=== PATIENT | female | born 1975 | race Caucasian/White ===

== ENCOUNTER 2016-06-05 08:20 | Emergency (ER) | payer OTHER ==
[2016-06-05 08:25] VITALS: BP 125/90; PULSE 84; TEMP 98; BMI 20.5
[2016-06-05] MEDS ORDERED: CYCLOBENZAPRINE HCL 10 MG TABLET (FP) PO ONE (08:51)
[2016-06-05] MEDS ORDERED: CYCLOBENZAPRINE HCL 10 MG TABLET (FP) ONE (08:56)
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
== END 2016-06-05 09:01 | disposition home or self-care (01) ==
LOC: JERFT 08:20
DX: S13.4XXA Sprain of ligaments of cervical spine, initial encounter (principal); V43.52XA Car driver injured in collision with other type car in traffic accident, initial encounter; Y92.414 Local residential or business street as the place of occurrence of the external cause; Y93.89 Activity, other specified; Y99.8 Other external cause status
CPT/HCPCS: 99281-25